=== PATIENT | female | born 1995 | race Caucasian/White ===

== ENCOUNTER → 2020-11-19 | Outpatient (CLI) | payer BC ==
[~2020-11-19] MED LIST: CLARITIN; IBUPROFEN800 MG PO; MOTRIN 800800 MG/TAB PO; MUCINEX 60600 MG/TAB PO; NO HOME MEDICATIONS; NORCO 325 MG-51 TAB PO; ORAPRED ODT10 MG PO; PERCOCET 325 MG1 TA2 PO; PRILOTC; SEASONIQUE1 TAB PO; TYLENOL #3 301 UDTAB PO; VICODIN 5/5001 UDTAB PO; ZOFRAN 4MG T4 MG/TAB PO
== END ==
LOC: ZCOL.LAB
DX: Z20.822 Contact with and (suspected) exposure to COVID-19 (principal)

== ENCOUNTER 2020-11-22 18:45 | Inpatient (IN) | payer BC ==
[~2020-11-22] VITALS: Ht 167.6 cm; Wt 87.3 kg
[~2020-11-22 18:45] MED LIST changes: -MOTRIN 800800 MG/TAB PO; -PRILOTC
[2020-11-22] MEDS ORDERED: PRILOTC (20:57)
[2020-11-22 21:00] VITALS: BP 132/85; PULSE 90; TEMP 98.2
[2020-11-22 21:30] VITALS: BP 121/81; PULSE 83
[2020-11-22 22:00] VITALS: BP 130/87; PULSE 77
[2020-11-22 22:19] LABS: BASO % 0.4 % (0.0-2.0); EOS # 0.1 (0.0-0.7); EOS % 0.7 % (0-4.0); GRAN # 5.6 (1.4-6.5); GRAN % 68.8 % (42.2-75.2); HEMOGLOBIN 11.5 g/dl (12.5-16.0); LYMPH # 1.9 (1.2-3.4); LYMPH % 23.9 % (20.0-51.0); MEAN CELL VOLUME 85 fl (80.0-100.0); MEAN CORPUSCULAR HEMOGLOBIN 29 pg (27.0-31.0); MEAN CORPUSCULAR HGB CONC 34 g/dl (33.0-37.0); MEAN PLATELET VOLUME 10.8 fl (7.4-10.4); MONO # 0.5 (0.1-0.6); MONO % 5.7 % (1.7-9.3); PLATELET COUNT 188 K/mm3 (130-400); RED BLOOD COUNT 3.98 M/mm3 (4.10-5.30); REDCELL DISTRIBUTION WIDTH-CV 12.9 % (11.5-14.5)
[2020-11-22 22:22] LABS: HEMATOCRIT 33.7 % (37.0-47.0)
[2020-11-22 22:30] VITALS: BP 127/86; PULSE 84
[2020-11-22 23:00] VITALS: BP 108/66; PULSE 69
[2020-11-22 23:30] VITALS: BP 113/69; PULSE 71
[2020-11-23] VITALS (61 sets, daily range): BP systolic 104–160; BP diastolic 58–107; PULSE 63–104; TEMP 97.6–98.5
--- NOTE | 2020-11-23 06:25 | NUR ---
Bedside report from Werner JONES. Patient has no needs at this time. 0730: Dr. Archuleta at bedside to assess patient and FHR strip. 0734: SVE-2/70/-2 and AROM at this time with clear fluid noted. Plan of care discussed and quesitons discussed. 0850: Patient requests epidural and Marc Martinez PROTECTION MANAGER notified. 0910: Patient sitting up for epidural and Marc Martinez PROTECTION MANAGER at bedside. Difficulty tracing FHR due to maternal position. 0916: Single shot given and patient tolerates well. 1025: Salvador catheter placed and patient tolerates well. SVE-2/70/-2 and patient left lateral with right leg resting in stirrup. 1145: Dr. Archuleta at bedside and SVE-5/90/0 and no new orders at this time. 1340: Patient vomitting at this time and repositoned/monitors adjusted 1348: SVE 9/90/+1.
--- NOTE | 2020-11-23 14:30 | NUR ---
SVE-10/100/+1 and pushing instructions discussed and questions answered. 1440: Patient begins to push with contractions. 1450: Patient vomits at this time. 1515: Patient pushing with contractions and FHR tracing recurrent variable decelerations with spontaneous return to baseline. FHR decreasing to 95bpm and returning to baseline. 1548: Dr. Archuleta called for delivery. 1552: Dr. Archuleta at bedside and patient continues to push. 1556: Spontaneous vaginal delivery of viable male-head followed by body. bulb syringed and to patients abdomen, Dominick JONES assumes care of . Cord clamped by physician and cut by FOB. Cord blood obtained. 1559: Spontaneous delivery of placenta and pitocin bolus started at 333mu/hr per protocol. Dr. Archuleta begins to repair laceration and fundal massage done. Patient straight catherized. Fundal massage done/firm/bleeding WNL. Plan of care discussed/patient repositioned and ice pack to perineum
--- NOTE | 2020-11-23 18:30 | NUR ---
Pt resting, going out for food. Denies discomfort, states "just tired"
--- NOTE | 2020-11-23 19:20 | NUR ---
Stands @ bedside. unable to lock left leg, "wobbly". Sits back on bed. Pivot transfer to wheelchair with and nurse assist. Into bathroom, pivot transfer to toilet, voids large amount. Pt reports "I'm feeling a little dizzy." seconds later reports "my ears are ringeing" Cold wash cloth to back of neck. Pivot transfer to wheelchair with assist of nurses x 2. To room via wheelchair. Moves self to bed with minimal assistance, states "I already feel better" Oriented to room, plan of care. Motrin given. Pt and spouse instructed that pt is not to get out of bed without staff assistance, both verbalize understanding.
[2020-11-24 00:30] VITALS: BP 110/60; PULSE 74; TEMP 97.9
[2020-11-24 07:02] VITALS: BP 115/70; PULSE 70; TEMP 98.5
--- NOTE | 2020-11-24 08:03 | NUR ---
REPROT RECEIVED FROM OFF GOING RN, KARSON Montoya. CARE TAKEN OVER BY THIS RN.
[2020-11-24] MEDS ORDERED: MOTRIN 800800 MG/TAB PO (08:24)
[2020-11-24] MEDS ORDERED: PERCOCET 325 MG1 TA2 PO (08:25)
--- NOTE | 2020-11-24 09:55 | NUR ---
Initial viist; Parents thanked [facility] Director for offering congratulations and God's blessings for the of their son. Academic Support Center Director thanked family for choosing [facility].
--- NOTE | 2020-11-24 09:57 | NUR ---
Initial visit; Mom out of room, Home Health Caregiver offered congratulations and God's blessings to Dad for the of their son. Dad thanked Home Health Caregiver for stopping in thanking them for choosing [facility].
[2020-11-24 15:59] VITALS: BP 103/57; PULSE 76; TEMP 98.4
--- NOTE | 2020-11-24 18:40 | NUR ---
Report recieved. Resting in bed while holding . POC reviewed and whiteboard updated.
[2020-11-24 19:20] VITALS: BP 114/73; PULSE 82; TEMP 98.3
[2020-11-25 09:27] VITALS: BP 125/82; PULSE 90; TEMP 98.1
--- NOTE | 2020-11-25 09:27 | NUR ---
Patient recived Docusate and Ibuprofen 800mg. Patient bowel sounds are active all 4 quadrants. Patients lung sounds are clear to auscultation. Patient states the bleeding has decreased.
== END 2020-11-25 12:20 | disposition home or self-care (01) | DRG 807 ==
LOC: OB 18:45 → LDR 20:15 → OB 20:15
PROVIDERS: ADMIT Obstetrics & Gynecology
PROC: 10E0XZZ Delivery of Products of Conception, External Approach (ICD-10-PCS; principal; 2020-11-22)
PROC: 0KQM0ZZ Repair Perineum Muscle, Open Approach (ICD-10-PCS; 2020-11-22)
PROC: 10907ZC Drainage of Amniotic Fluid, Therapeutic from Products of Conception, Via Natural or Artificial Opening (ICD-10-PCS; 2020-11-22)
PROC: 3E0P7VZ Introduction of Hormone into Female Reproductive, Via Natural or Artificial Opening (ICD-10-PCS; 2020-11-22)
PROC: 3E033VJ Introduction of Other Hormone into Peripheral Vein, Percutaneous Approach (ICD-10-PCS; 2020-11-22)
DX: O48.0 Post-term pregnancy (principal); Z37.0 Single live birth; O70.1 Second degree perineal laceration during delivery; Z3A.40 40 weeks gestation of pregnancy
CPT/HCPCS: J0690; J1200; J1885; J2250; J2370; J2405; J2590; J2791; J2795; J3010; J7120